=== PATIENT | male | born 1985 | race Caucasian/White ===

== ENCOUNTER → 2020-03-10 | Outpatient (CLI) | payer OTHER ==
--- NOTE | 2020-03-10 09:50 | US ---
EXAMINATION TYPE: US liver DATE OF EXAM: 03/10/2020 COMPARISON: NONE CLINICAL HISTORY: B18.2 Chronic viral HEP C. EXAM MEASUREMENTS: Liver Length: 15.1 cm Gallbladder Wall: 0.1 cm CBD: 0.4 cm Right Kidney: 11.8 x 3.6 x 5.4 cm Pancreas: Obscured by bowel gas Liver: Coarse, heterogeneous Gallbladder: wnl Evidence for sonographic Polk's sign: No CBD: wnl Right Kidney: No hydronephrosis or masses seen Suboptimal evaluation of pancreas on images saved. Visualized liver is heterogeneous in appearance w ithout worrisome focal mass or ductal dilatation seen on images saved. No surrounding ascites. Gallbl adder has some distended margins without intraluminal gallstones. Right kidney shows no hydronephrosi s. IMPRESSION: No worrisome focal intrahepatic mass or hepatic ductal dilatation.
[2020-03-10 10:55] LABS: Prothrombin Time 10.7 sec (9.0-12.0)
[2020-03-10 11:22] LABS: Basophils % (A) 0 %; Eosinophils # (A) 0.2 k/uL (0-0.7); Eosinophils % (A) 3 %; HCT 49.6 % (39.0-53.0); HGB 16.5 gm/dL (13.0-17.5); Lymphocytes # (A) 1.2 k/uL (1.0-4.8); Lymphocytes % (A) 24 %; MCH 32.9 pg (25.0-35.0); MCHC 33.2 g/dL (31.0-37.0); MCV 99.1 fL (80.0-100.0); Mean Platelet Volume 7.9; Monocytes # (A) 0.6 k/uL (0-1.0); Monocytes % (A) 11 %; Neutrophils % (A) 59 %; Platelet Count 199 k/uL (150-450); RDW 12.2 % (11.5-15.5); WBC 5.1 k/uL (3.8-10.6)
[2020-03-12 11:38] LABS: HCV Qualitative Result DETECTED (Not detected); HCV Quant Log 5.51 (<1.08)
== END | disposition home or self-care (01) ==
LOC: RADUSWWP 08:54
PROVIDERS: ATTEND Internal Medicine Gastroenterology
DX: B18.2 Chronic viral hepatitis C (principal)
CPT/HCPCS: 76705; 82105; 85025; 85610; 87522

== ENCOUNTER → 2020-05-18 | Outpatient (CLI) | payer OTHER ==
[2020-05-18 14:51] LABS: Basophils % (A) 0 %; Eosinophils # (A) 0.2 k/uL (0-0.7); Eosinophils % (A) 2 %; HCT 47.4 % (39.0-53.0); HGB 15.2 gm/dL (13.0-17.5); Lymphocytes # (A) 2.1 k/uL (1.0-4.8); Lymphocytes % (A) 32 %; MCH 31.3 pg (25.0-35.0); MCHC 32.2 g/dL (31.0-37.0); MCV 97.3 fL (80.0-100.0); Mean Platelet Volume 7.7; Monocytes # (A) 0.5 k/uL (0-1.0); Monocytes % (A) 8 %; Neutrophils # (A) 3.6 k/uL (1.3-7.7); Platelet Count 213 k/uL (150-450); RBC 4.87 m/uL (4.30-5.90); RDW 12.3 % (11.5-15.5); WBC 6.4 k/uL (3.8-10.6)
[2020-05-18 23:56] LABS: Albumin 4.4 g/dL (3.80-4.90); Albumin/Globulin Ratio 1.76 (1.60-3.17); Bilirubin, Conjugated 0.2 mg/dL (0.20-0.40); Bilirubin,Unconjugated 0.5 mg/dL; Globulin 2.5 g/dL (1.6-3.3); Total Bilirubin 0.7 mg/dL (0.2-1.2); Total Protein 6.9 g/dL (6.2-8.2)
== END | disposition home or self-care (01) ==
LOC: LABWHC1 13:53
PROVIDERS: ATTEND Nurse Practitioner
DX: B18.2 Chronic viral hepatitis C (principal)
CPT/HCPCS: 36415; 80076; 85025; 87522